=== PATIENT | female | born 1980 | race African-American/Black ===

== ENCOUNTER 2019-12-14 02:49 | Emergency (ER) | payer MEDICAID, OTHER ==
[~2019-12-14] VITALS: Ht 170.2 cm; Wt 68.0 kg
[2019-12-14] MEDS ORDERED: TETANUS, DIPHTHERIA, PERTUSSIS VAC/PF 0.5ML (>7YR OLD) IM ONE (03:30)
[2019-12-14] MEDS ORDERED: AMOXICILLIN/POTASSIUM CLAVULANATE 875/125MG TAB PO ONE (03:30)
[2019-12-14] MEDS ORDERED: IBUPROFEN 600MG TABLET PO ONE (03:30)
[2019-12-14 04:20] VITALS: BP 121/74
== END 2019-12-14 04:21 | disposition home or self-care (01) ==
LOC: ER 03:34
DX: S51.852A Open bite of left forearm, initial encounter (principal); M79.632 Pain in left forearm; W55.01XA Bitten by cat, initial encounter; Y93.9 Activity, unspecified; Y92.9 Unspecified place or not applicable
CPT/HCPCS: 81025; 90471; 90715; 93005; 99283